=== PATIENT | female | born 1975 | race Caucasian/White ===

== ENCOUNTER 2020-10-17 01:03 | Emergency (ER) | payer BC, OTHER ==
--- NOTE | 2020-10-17 01:34 | EDM.PDOC ---
ED HPI GENERAL MEDICAL PROBLEM - General Chief Complaint: Lower Extremity Injury/Pain Stated Complaint: PAIN IN LEG Time Seen by Provider: 10/17/20 01:18 Source of Information: Reports: Patient History Limitations: Reports: No Limitations - History of Present Illness INITIAL COMMENTS - FREE TEXT/NARRATIVE: Mrs. West is a very pleasant 44-year-old woman who now presents the ED with right leg pain that began this past 10/13/2020 or 10/14/2020. She indicates pain to the lateral aspect of her calf. She thinks her right leg may be a bit swollen. No known injury. No prior similar symptoms. Here in the ED, the patient's initial BP is found to be elevated at 167/98, otherwise, she is hemodynamically stable, afebrile, saturating 99% on room air. Other than the right leg pain, the patient denies having a recent fever, chills, sore throat, ear pain, nasal or sinus congestion, cough, dyspnea, chest pain, palpitations, nausea, vomiting, constipation, diarrhea, abdominal pain, urinary symptoms, recent weight gain or weight loss, recent bloody bowel movements or black bowel movements, recent joint aches, headaches, or rashes. The patient's PCP is Dr. Addis Hoyt. Right Leg Pain Score (Numeric/FACES): 4 - Related Data Allergies Allergy/AdvReac Type Severity Reaction Status Date / Time lorazepam Allergy Drowsiness Verified 10/17/20 01:16 Sulfa (Sulfonamide Allergy Hives Verified 10/17/20 01:16 Antibiotics) Home Meds: Home Meds . [No Known Home Meds] 10/17/20 [History] Past Medical History Gastrointestinal History: Reports: GERD Musculoskeletal History: Reports: Back Pain, Chronic (scoliosis), Fracture (mandible, clavicle) Endocrine/Metabolic History: Reports: Hypothyroidism, Obesity/BMI 30+ - Past Surgical History HEENT Surgical History: Reports: Oral Surgery (Mandible wiring. 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 ED EXAM, GENERAL - Physical Exam Exam: See Below Exam Limited By: No Limitations General Appearance: Alert, WD/WN, No Apparent Distress Extremities: Other (No visible abnormality to the right leg, when compared to the left, such as swelling, erythema, ecchymosis, or abrasion. No significant tenderness to palpation of the right leg. Mid-calf circumference on the right = 44.25 cm, left = 43.75 cm. Neurovascular status of the right lower extremity is i) Course - Vital Signs Last Recorded V/S: Last Vital Signs Temp 36.7 C 10/17/20 01:14 Pulse 99 10/17/20 01:14 Resp 16 10/17/20 01:14 BP 167/90 H 10/17/20 01:14 Pulse Ox 99 10/17/20 01:14 - Orders/Labs/Meds Orders: Active Orders 24 hr Category Date Time Status VL Duplex Lwr Ext Veins Ltd Rt [US] Stat Exams 10/17/20 01:28 Taken Labs: Laboratory Tests 10/17/20 Range/Units 01:38 PT 11.8 (9.7-12.0) SECONDS INR 1.10 APTT 29.3 (21.7-31.4) SECONDS - Re-Assessments/Exams Free Text/Narrative Re-Assessment/Exam: 10/17/20 01:29 I have ordered a Doppler ultrasound of the right lower extremity, along with coags. 10/17/20 03:10 Doppler ultrasound of the right lower extremity is read by [facility] as: No evidence of deep vein thrombosis. Calf vessels not well visualized. The patient's coags are within normal limits. Departure - Departure Time of Disposition: 03:16 Disposition: Home, Self-Care 01 Condition: Good Clinical Impression: Right leg pain - Discharge Information *PRESCRIPTION DRUG MONITORING PROGRAM REVIEWED*: Not Applicable *COPY OF PRESCRIPTION DRUG MONITORING REPORT IN PATIENT [place]: Not Applicable Referrals: Addis Hunt MD [Primary Care Provider] - Forms: ED Department Discharge Additional Instructions: You were seen in the emergency room after developing right leg pain this past Wednesday or Wednesday. Work-up in the ER included a Doppler ultrasound of your right leg, along with checking your blood coags. The Doppler ultrasound did not find a blood clot, and your coags are normal. The cause of your right leg pain is not known, but does not appear to be due to anything serious. We recommend you take [id number] Tylenol or ibuprofen as needed for discomfort. You may resume your usual activity. If any other problems, please do not hesitate to return to the ER. Sepsis Event Note (ED) - Evaluation Sepsis Screening Result: No Definite Risk - Focused Exam Vital Signs: Vital Signs Temp Pulse Resp BP Pulse Ox 10/17/20 01:14 36.7 C 99 16 167/90 H 99 - My Orders Last 24 Hours: My Active Orders 10/17/20 01:28 VL Duplex Lwr Ext Veins Ltd Rt [US] Stat - Assessment/Plan Last 24 Hours: My Active Orders 10/17/20 01:28 VL Duplex Lwr Ext Veins Ltd Rt [US] Stat
[2020-10-17 01:51] VITALS: BP 167/90; PULSE 99
--- NOTE | 2020-10-17 08:47 | US ---
Right lower extremity deep venous ultrasound: Duplex and color Doppler evaluation was obtained on the right common femoral, proximal greater saphenous, superficial femoral, popliteal, posterior tibial and peroneal veins. Left common femoral vein was also evaluated. Findings: Peroneal vein is not well seen for phasic flow. Other veins show normal phasic flow, augmentation and compression. Additional real-time images were obtained of the medial calf which show no cyst or solid abnormality. No superficial abnormality is appreciated. Impression: 1. Minimal lack of phasic flow within the peroneal vein. 2. No findings of deep venous thrombosis or superficial thrombophlebitis. Diagnostic code #2 I agree with preliminary report from [facility], finalized on 10/17/20, 3:47 AM CDT
== END 2020-10-17 03:31 | disposition home or self-care (01) ==
LOC: JD.ED 01:03
DX: M79.661 Pain in right lower leg (principal); E66.9 Obesity, unspecified; Z68.37 Body mass index [BMI] 37.0-37.9, adult; Z88.8 Allergy status to other drugs, medicaments and biological substances; Z88.2 Allergy status to sulfonamides
CPT/HCPCS: 36415; 85610; 85730; 93971-26-RT; 93971-RT; 99282; 99284-25

== ENCOUNTER 2021-11-16 21:21 | Emergency (ER) | payer OTHER, BC ==
[2021-11-16 21:41] VITALS: BP 136/97; PULSE 103
[2021-11-16] MEDS ORDERED: Acetaminophen/HYDROcodone 325-5 MG Tab PO ONE (22:13)
[2021-11-16] MEDS ORDERED: Ondansetron 4 MG Tab.DIS PO ONE (22:13)
[2021-11-16] MEDS ORDERED: Diphtheria,Pertussis(Acell),Tetanus Vaccine 0.5 ML Syringe IM ONE (22:13)
== END 2021-11-16 23:14 | disposition home or self-care (01) ==
LOC: JD.ED 21:21
DX: T23.241A Burn of second degree of multiple right fingers (nail), including thumb, initial encounter (principal); E03.9 Hypothyroidism, unspecified; E66.9 Obesity, unspecified; Z88.2 Allergy status to sulfonamides; Z88.5 Allergy status to narcotic agent; Z79.899 Other long term (current) drug therapy; Z23 Encounter for immunization; Z68.29 Body mass index [BMI] 29.0-29.9, adult; X19.XXXA Contact with other heat and hot substances, initial encounter
CPT/HCPCS: 90471; 90715; 99283; A9270; 99284

== ENCOUNTER 2023-01-14 18:26 | Emergency (ER) | payer OTHER, BC ==
[2023-01-14] MEDS ORDERED: Sodium Chloride 0.9% 10 ML Syringe FLUSH PRN (18:37)
[2023-01-14 19:08] LABS: BASOPHILS ABSOLUTE AUTO 0.04 K/mm3 (0.01-0.08); BASOPHILS PERCENT AUTO 0.5 % (0.1-1.2); EOSINOPHILS ABSOLUTE AUTO 0.17 K/mm3 (0.04-0.36); EOSINOPHILS PERCENT AUTO 2.2 (0.7-5.8); HEMATOCRIT 44.6 % (34.1-44.9); HEMOGLOBIN 14.7 gm/dl (11.2-15.7); IMMATURE GRAN ABSOLUTE AUTO 0.03 K/mm3 (0.00-0.10); IMMATURE GRAN PERCENT AUTO 0.4 % (<=1.0); LYMPHOCYTES ABSOLUTE AUTO 1.83 K/mm3 (1.18-3.74); MEAN CORPUSCULAR HEMOGLOBIN 28.2 pg (25.6-32.2); MEAN CORPUSCULAR VOLUME 85.4 fl (79.4-94.8); MEAN PLATELET VOLUME 10.2 fl (9.4-12.3); MONOCYTES ABSOLUTE AUTO 0.32 K/mm3 (0.24-0.36); MONOCYTES PERCENT AUTO 4.2 % (4.7-12.5); NEUTROPHILS ABSOLUTE AUTO 5.22 K/mm3 (1.56-6.13); NEUTROPHILS PERCENT AUTO 68.7 % (34.0-71.1); PLATELET COUNT,PLT 293 K/mm3 (182-369); RED BLOOD CELL COUNT 5.22 M/mm3 (3.98-5.22); WHITE BLOOD CELL COUNT,WBC 7.61 K/mm3 (3.98-10.04)
[2023-01-14 19:30] LABS: D-DIMER QUANTITATIVE 0.27 mg/L (0.19-0.50); INR 1.07; PROTHROMBIN TIME 11.4 SECONDS (9.7-12.0)
[2023-01-14 19:31] LABS: PTT,PARTIAL THROMBOPLSTIN TIME 28.7 SECONDS (21.7-31.4)
[2023-01-14 19:39] LABS: A/G RATIO 0.9 (1-2); ALBUMIN 3.8 g/dl (3.4-5.0); ANION GAP 11.6 (5-15); BILIRUBIN TOTAL 0.3 mg/dL (0.2-1.0); BUN/CREATININE RATIO 23.3 (14-18); CREATININE 0.9 mg/dL (0.55-1.02); EST CRCL DRUG DOSING (CG) 66.73 mL/min; MAGNESIUM 1.9 mg/dL (1.8-2.4); POTASSIUM,K 3.6 mEq/L (3.5-5.1); PROTEIN TOTAL,TP 8.2 g/dl (6.4-8.2)
[2023-01-14 21:27] VITALS: BP 150/96; PULSE 96
== END 2023-01-14 20:00 | disposition home or self-care (01) ==
LOC: JD.ED 18:26
DX: R07.89 Other chest pain (principal); K21.9 Gastro-esophageal reflux disease without esophagitis; E03.9 Hypothyroidism, unspecified; E66.9 Obesity, unspecified; Z68.41 Body mass index [BMI] 40.0-44.9, adult; Z86.16 Personal history of COVID-19; Z88.2 Allergy status to sulfonamides; Z88.8 Allergy status to other drugs, medicaments and biological substances; Z79.899 Other long term (current) drug therapy
CPT/HCPCS: 36415; 71045; 80053; 83735; 83880; 84443; 84484; 85025; 85379; 85610; 85730; 93005; 99285; J3490